=== PATIENT | male | born 1945 | race African-American/Black ===

== ENCOUNTER 2022-04-21 11:01 | Inpatient (IN) | payer MEDICARE, OTHER ==
[~2022-04-21] VITALS: Ht 170.2 cm; Wt 59.9 kg
--- NOTE | 2022-04-21 07:30 | NUR ---
Received Pt from day shift. Pt is A&Ox 0 and is asleep. SR on monitor. Pt on Rm air. GUILLE midline is intact. Pt has patent G-tube. Pt has suprapubic catheter. Air mattress ordered. Safety measures in place. Will continue to monitor. Addendum: 04/22/22 at 0607 by BINA TSAI RN Received Pt at 1930, not 0730
[2022-04-21] MEDS ORDERED: IV NORMAL SALINE 500 ML BAG IV ONE (11:30)
[2022-04-21 11:42] LABS: HEMATOCRIT 27.5 % (36.7-47.1); MEAN CORPUSCULAR HEMOGLOBIN 22.8 uug (23.8-33.4); MEAN CORPUSCULAR VOLUME 79.3 fL (73.0-96.2); PLATELET COUNT (AUTO) 425 K/uL (152-348)
--- NOTE | 2022-04-21 11:48 | NUR ---
Attempted 3 times to get iv and unsuccesful. plant engineering manager and house calls nurse aware and informed about not getting iv and picc line nurse will be called by Nurse cap and hat production supervisor.
--- NOTE | 2022-04-21 11:53 | NUR ---
Not able to get iv at present time so fluids ordered by through pt gtube.
[2022-04-21 11:59] LABS: ALANINE AMINOTRANSFERASE 49 U/L (16-63); ALKALINE PHOSPHATASE 115 U/L (50-136); ASPARTATE AMINOTRANSFERASE 32 U/L (15-37); BILIRUBIN,TOTAL 0.2 mg/dL (0.2-1.0); CARBON DIOXIDE 35 mmol/L (21-32); CHLORIDE 112 mmol/L (98-107); CREATININE 1.4 mg/dL (0.6-1.3); GLUCOSE 117 mg/dL (74-106); POTASSIUM 5.1 mmol/L (3.5-5.1); TOTAL PROTEIN, SERUM 8.5 g/dL (6.4-8.2)
[2022-04-21 12:02] LABS: UREA NITROGEN, BLOOD 115 mg/dL (7-18)
[2022-04-21] MEDS ORDERED: DOCU100C36 GT (12:17)
[2022-04-21] MEDS ORDERED: ASCO500T10 GT (12:17)
[2022-04-21] MEDS ORDERED: FERROUS SULFATE GT (12:17)
[2022-04-21] MEDS ORDERED: ACET-2154 GT ×2 (12:17→12:34)
[2022-04-21] MEDS ORDERED: LACT10SO3 GT (12:17)
[2022-04-21] MEDS ORDERED: FAMO-132 GT (12:17)
[2022-04-21] MEDS ORDERED: APIX5TAB4 GT (12:17)
[2022-04-21] MEDS ORDERED: GABA600T12 GT (12:17)
[2022-04-21] MEDS ORDERED: BISA10SU61 RC (12:17)
[2022-04-21] MEDS ORDERED: SENN-261 GT (12:34)
[2022-04-21] MEDS ORDERED: COLL30OI TP (12:34)
[2022-04-21] MEDS ORDERED: MULTIVITAMINS GT (12:34)
[2022-04-21] MEDS ORDERED: MAGN400O6 GT (12:34)
[2022-04-21] MEDS ORDERED: NORCO GT ×2 (12:34)
[2022-04-21] MEDS ORDERED: NA P133E RC (12:34)
[2022-04-21] MEDS ORDERED: ZINC1CAP2 GT (12:34)
[2022-04-21] MEDS ORDERED: METO50TA16 GT (12:34)
[2022-04-21] MEDS ORDERED: MELA3TAB41 GT (12:34)
[2022-04-21] MEDS ORDERED: CHOL100045 GT (12:34)
[2022-04-21] MEDS ORDERED: LINA72CA GT (12:34)
[2022-04-21] MEDS ORDERED: CRAN3875 GT (12:34)
[2022-04-21] MEDS ORDERED: AMIN236L GT (12:34)
[2022-04-21] MEDS ORDERED: BISACODYL 10 MG SUPP.RECT RC PRN (13:00)
[2022-04-21] MEDS ORDERED: FLEET ENEMA 133 ML BOTTLE RC PRN (13:00)
[2022-04-21] MEDS ORDERED: ACETAMINOPHEN 325 MG TABLET-SA PATIENTS-PAIN ONLY GT PRN ×2 (13:00)
[2022-04-21] MEDS ORDERED: IV 1/2NS 1000 ML 1,000 ML IV PRN (13:00)
[2022-04-21] MEDS ORDERED: REMEDY ESSENTIAL ZINC PASTE 113 GM TP PRN (13:00)
[2022-04-21] MEDS ORDERED: ONDANSETRON 4 MG/2 ML VIAL IV PRN (13:00)
[2022-04-21] MEDS ORDERED: Medication Not On Formulary EA (Lactulose (Duphalac) 20 GM) GT SCH (13:00)
[2022-04-21] MEDS ORDERED: MAGNESIUM HYDROXIDE 30 ML LIQUID UDC GT PRN (13:00)
[2022-04-21] MEDS ORDERED: MAGNESIUM HYDROXIDE 30 ML LIQUID UDC PO PRN (13:00)
[2022-04-21] MEDS ORDERED: ASCORBIC ACID 500 MG TABLET ONE (13:22)
[2022-04-21] MEDS: ASCORBIC ACID 500 MG TABLET GT SCH ×2 (13:24→17:43)
--- NOTE | 2022-04-21 13:59 | NUR ---
PiCC line put into right upper arm.
[2022-04-21] MEDS ORDERED: MEROPENEM 1 G in IV NORMAL SALINE 100 ML IV SCH (14:00)
--- NOTE | 2022-04-21 14:01 | NUR ---
Report given to Lashelle. stokes
--- NOTE | 2022-04-21 14:21 | NUR ---
PICC line put in. Pt continues to move hands making fists and 02 monitor not reading proficiently. Pt moving and difficult to get vitals when staff not assisting holding him still. 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 Breathing even and unlabored. No signs of distress noted.
[2022-04-21 15:47] VITALS: BP 154/90
[2022-04-21] MEDS: MEROPENEM 1 G in IV NORMAL SALINE 100 ML IV SCH (16:00)
[2022-04-21] MEDS ORDERED: DOCUSATE SODIUM 100 MG CAPSULE PO SCH (17:00)
[2022-04-21] MEDS ORDERED: Medication Not On Formulary EA (Apixaban (Eliquis) 5 MG) GT SCH (17:00)
[2022-04-21] MEDS ORDERED: FAMOTIDINE 20 MG TABLET GT SCH (17:00)
[2022-04-21] MEDS: MORPHINE SULFATE 2 MG/1 ML DISP.SYRIN IV PRN (17:23)
[2022-04-21] MEDS ORDERED: PANTOPRAZOLE SODIUM 40 MG VIAL IV SCH (17:30)
[2022-04-21] MEDS: METOPROLOL TARTRATE 50 MG TABLET GT SCH (17:42)
[2022-04-21] MEDS: LACTULOSE 20 G/30 ML LIQUID UDC GT SCH ×2 (17:42→20:52)
[2022-04-21] MEDS: GABAPENTIN 300 MG CAPSULE GT SCH (17:42)
[2022-04-21] MEDS: DOCUSATE SODIUM 100 MG/10 ML LIQUID UDC GT SCH (17:42)
[2022-04-21 20:00] VITALS: BP 96/36
[2022-04-21] MEDS: IV D5 1/2 NS 1000 ML 1,000 ML IV PRN (20:20)
[2022-04-21] MEDS: VANCOMYCIN IV 750 MG in IV DEXTROSE 5% 250 ML IV SCH (20:22)
[2022-04-21] MEDS: PANTOPRAZOLE SODIUM 40 MG VIAL IV SCH (20:51)
[2022-04-21] MEDS: SENNOSIDES 1 TABLET GT SCH (20:51)
[2022-04-21] MEDS: SUCRALFATE 1 G TABLET GT SCH (20:51)
[2022-04-21] MEDS: MELATONIN 3 MG TABLET GT SCH (20:51)
[2022-04-21] MEDS ORDERED: APIXABAN 5 MG TABLET GT SCH (21:00)
[2022-04-21] MEDS: SOD FERRIC GLUC COMPLX/SUCROSE 125 MG in IV NORMAL SALINE 100 ML IV SCH (22:58)
[2022-04-22] VITALS (13 sets, daily range): BP systolic 68–129; BP diastolic 35–64
--- NOTE | 2022-04-22 02:04 | NUR ---
MRSA swab & UA sent to lab. Safety measures in place. Will continue to monitor.
[2022-04-22 02:47] LABS: *BILIRUBIN,URIN NEGATIVE (NEGATIVE); *BLOOD, URINE 3+ (NEGATIVE); *CLARITY,URINE TURBID (CLEAR); *COLOR,URINE LIGHT YELLOW (YELLOW); *KETONES,URINE NEGATIVE (NEGATIVE); LEUKOCYTE ESTERASE ,URINE 3+ (NEGATIVE); NITRITE, URINE POSITIVE (NEGATIVE); PH,URINE >=9.0 (5.0-8.0); UGLUCOSE NEGATIVE (NEGATIVE)
[2022-04-22 03:44] LABS: RBC,URINE 50-80 /HPF (0-3)
[2022-04-22 03:46] LABS: BACTERIA,URINE MANY /HPF (NONE SEEN); SQUAMOUS EPITHELIAL CELL,UR FEW /HPF (NONE SEEN); WBC,URINE 50-80 /HPF (0-3)
[2022-04-22 03:49] LABS: CALCIUM PHOSPHATE CRYSTALS,UR MODERATE /HPF (NONE SEEN)
[2022-04-22] MEDS: MEROPENEM 1 G in IV NORMAL SALINE 100 ML IV SCH ×2 (04:06→16:43)
[2022-04-22] MEDS: MORPHINE SULFATE 4 MG/1 ML DISP.SYRIN IV PRN (04:06)
[2022-04-22 05:46] LABS: HEMATOCRIT 25.4 % (36.7-47.1); MEAN CORPUSCULAR HEMOGLOBIN 22.7 uug (23.8-33.4); MEAN CORPUSCULAR VOLUME 78.8 fL (73.0-96.2); PLATELET COUNT (AUTO) 429 K/uL (152-348)
[2022-04-22 05:56] LABS: CARBON DIOXIDE 34 mmol/L (21-32); CHLORIDE 110 mmol/L (98-107); CREATININE 1.4 mg/dL (0.6-1.3); GLUCOSE 121 mg/dL (74-106); MAGNESIUM 2.4 mg/dL (1.8-2.4); PHOSPHOROUS 4.6 mg/dL (2.5-4.9); POTASSIUM 4.6 mmol/L (3.5-5.1)
[2022-04-22 06:02] LABS: UREA NITROGEN, BLOOD 97 mg/dL (7-18)
--- NOTE | 2022-04-22 06:07 | NUR ---
Received report from lab that BUN is 97. Performed Critical lab charting. Will continue to monitor.
[2022-04-22] MEDS: SUCRALFATE 1 G TABLET GT SCH ×4 (06:40→21:00)
[2022-04-22] MEDS: METOPROLOL TARTRATE 50 MG TABLET GT SCH ×2 (09:00→17:00)
[2022-04-22] MEDS ORDERED: AMINO ACIDS GT SCH (09:00)
[2022-04-22] MEDS ORDERED: MULTIVITAMINS GT SCH (09:00)
[2022-04-22] MEDS ORDERED: Linaclotide (Linzess) 72 MCG) GT SCH (09:00)
[2022-04-22] MEDS ORDERED: PROTEIN HYDROLYS GT SCH (09:00)
[2022-04-22] MEDS ORDERED: Medication Not On Formulary EA (Cran/Vitc/Mannose/Inulin/Brom (Uti-Stat Liquid) 30 MG) GT SCH (09:00)
[2022-04-22] MEDS ORDERED: CHOLECALCIFEROL GT SCH (09:00)
[2022-04-22] MEDS: LACTULOSE 20 G/30 ML LIQUID UDC GT SCH ×5 (09:00→21:00)
[2022-04-22] MEDS: MULTIVITAMINS,THERAPEUTIC TABLET GT SCH (09:00)
[2022-04-22] MEDS: DOCUSATE SODIUM 100 MG/10 ML LIQUID UDC GT SCH ×2 (09:00→17:10)
[2022-04-22] MEDS ORDERED: FERROUS SULFATE GT SCH (09:00)
--- NOTE | 2022-04-22 11:34 | NUR ---
CALLED TO ROOM BY NOZZLE OPERATOR FOR BP OF 68. PT IS AWAKE AND IS ASYMPTOMATIC. MPOIvania CAVANAUGH PAGED VIA TEXT MESSAGING AND PHONE CALL. AWAITING RESPOSE.D5I/2 NS INFUSING ORDERED. WILL CONTINUE TO MONITOR.
[2022-04-22] MEDS: PANTOPRAZOLE SODIUM 40 MG VIAL IV SCH ×2 (12:00→22:37)
[2022-04-22] MEDS: FAMOTIDINE 20 MG TABLET GT SCH (12:00)
[2022-04-22] MEDS: FERROUS SULFATE 300 MG/5 ML LIQUID UDC GT SCH (12:00)
[2022-04-22] MEDS: GABAPENTIN 300 MG CAPSULE GT SCH ×3 (12:00→17:10)
[2022-04-22] MEDS: ZINC SULFATE 220 MG CAPSULE GT SCH (12:00)
[2022-04-22] MEDS ORDERED: ALBUMIN HUMAN 25% 50 ML IV ONE ×2 (12:15→13:45)
[2022-04-22] MEDS ORDERED: IV NORMAL SALINE 500 ML IV ONE (12:15)
--- NOTE | 2022-04-22 12:17 | NUR ---
BP AND O2SAT 98. aLBUMIN IS IN PROCESS ORDERED.
[2022-04-22] MEDS: CHOLECALCIFEROL 1,000 UNIT TABLET GT SCH (12:22)
[2022-04-22] MEDS: IV D5 1/2 NS 1000 ML 1,000 ML IV PRN ×3 (13:04→22:38)
[2022-04-22] MEDS: SOD FERRIC GLUC COMPLX/SUCROSE 125 MG in IV NORMAL SALINE 100 ML IV SCH (13:09)
[2022-04-22] MEDS ORDERED: IV NS 1000 ML 1,000 ML IV PRN (13:45)
[2022-04-22] MEDS ORDERED: MIDODRINE HCL 2.5 MG TABLET PO PRN (13:45)
[2022-04-22] MEDS ORDERED: IV D5 1/2 NS 1000 ML 1,000 ML IV ONE (13:45)
--- NOTE | 2022-04-22 13:45 | NUR ---
[facility] REQUESTED WITH TYPE AND SCREEN TO TRANSFUSE IPRBC PER MD FOR HGB 7.3. NO ACTIVE BLEEDING NOTED.
--- NOTE | 2022-04-22 13:57 | NUR ---
BP 77/44 BOLUS NS IL IN PROGRESS. PT IS AWAKE.
[2022-04-22] MEDS: MIDODRINE HCL 5 MG TABLET PO PRN (15:12)
[2022-04-22] MEDS: PROTEIN SUPPLEMENT (PROSTAT) 30 ML LIQUID GT SCH (15:14)
[2022-04-22] MEDS: VANCOMYCIN IV 750 MG in IV DEXTROSE 5% 250 ML IV SCH (17:09)
[2022-04-22] MEDS: ACETAMINOPHEN 325 MG TABLET GT PRN (17:17)
--- NOTE | 2022-04-22 18:00 | NUR ---
CONSENT OBTAINED AND BLOOD TRANSFUSION INITIATED ORDERED. BP 77/39, HR 55. PT IS ON ROOM AIR. HOB [address] AT 2L/MIN NC.
--- NOTE | 2022-04-22 18:30 | NUR ---
BLOOD TRANSFUSION IN PROGRESS WITHOUT S/S OF ADVERSE REACTION. WILL CONTINUE TO MONITOR VS. HOB AT 30 DEGREE. S/P CATH IS INTACT AND PATENT.
[2022-04-22] MEDS: SENNOSIDES 1 TABLET GT SCH (21:00)
[2022-04-22] MEDS: MELATONIN 3 MG TABLET GT SCH (21:00)
[2022-04-23] VITALS: BP 104/51
[2022-04-23 04:00] VITALS: BP 121/62
[2022-04-23] MEDS: MEROPENEM 1 G in IV NORMAL SALINE 100 ML IV SCH ×2 (04:24→20:17)
[2022-04-23 05:07] LABS: ABG HCO3 26.3 mmol/L; ABG PCO2 39.7 mmHg (35.0-45.0); ABG PH 7.439 (7.350-7.450); ABG PO2 84.6 mmHg (75.0-100.0); ABG SITE LEFT RADIAL; ABG TOTAL HEMOGLOBIN 8.7 G/dL (13.5-18.0); COHb 1.1 % (0.5-1.5); MetHb 0.3 % (0.0-1.5); O2Hb 95.2 % (94.0-97.0); VENT MODE Nasal Cannula
[2022-04-23] MEDS: SUCRALFATE 1 G TABLET GT SCH ×4 (06:34→20:45)
--- NOTE | 2022-04-23 07:30 | NUR ---
REPORT GIVEN TO KEELY LIEBERMAN
[2022-04-23] MEDS: PROTEIN SUPPLEMENT (PROSTAT) 30 ML LIQUID GT SCH (08:11)
[2022-04-23] MEDS: PANTOPRAZOLE SODIUM 40 MG VIAL IV SCH ×2 (08:53→20:46)
[2022-04-23] MEDS: LACTULOSE 20 G/30 ML LIQUID UDC GT SCH ×4 (08:54→20:46)
[2022-04-23] MEDS: FERROUS SULFATE 300 MG/5 ML LIQUID UDC GT SCH (08:54)
[2022-04-23] MEDS: FAMOTIDINE 20 MG TABLET GT SCH (08:55)
[2022-04-23] MEDS: GABAPENTIN 300 MG CAPSULE GT SCH ×3 (08:55→17:00)
[2022-04-23] MEDS: ZINC SULFATE 220 MG CAPSULE GT SCH (08:55)
[2022-04-23] MEDS: MULTIVITAMINS,THERAPEUTIC TABLET GT SCH (08:55)
[2022-04-23] MEDS: CHOLECALCIFEROL 1,000 UNIT TABLET GT SCH (08:55)
[2022-04-23] MEDS: METOPROLOL TARTRATE 50 MG TABLET GT SCH ×2 (09:00→17:00)
[2022-04-23] MEDS: DOCUSATE SODIUM 100 MG/10 ML LIQUID UDC GT SCH ×2 (09:04→17:00)
[2022-04-23 09:20] LABS: HEMATOCRIT 26.4 % (36.7-47.1); MEAN CORPUSCULAR HEMOGLOBIN 23.5 uug (23.8-33.4); MEAN CORPUSCULAR VOLUME 79.2 fL (73.0-96.2); PLATELET COUNT (AUTO) 381 K/uL (152-348)
[2022-04-23 09:35] LABS: BILIRUBIN,TOTAL 0.3 mg/dL (0.2-1.0); MAGNESIUM 1.8 mg/dL (1.8-2.4); PHOSPHOROUS 3.6 mg/dL (2.5-4.9); POTASSIUM 3.8 mmol/L (3.5-5.1); TOTAL PROTEIN, SERUM 7.4 g/dL (6.4-8.2)
--- NOTE | 2022-04-23 10:00 | NUR ---
RECEIVED ON FIRST STEP BANDAR TOTALLY DEPENDENT NON VERBAL ALL NEEDS ANTICIPATED AND SATISFIED ON O2 WITH NO SOB AT THIS TIME TURNED AND REPOSITIONED Q2H.POOR SKIN INTERGRITY WITH MULTIPLE WOUNDS ALL OVER THE BODY PATIENT HAS A GT BUT IS NPO EXCEPT MEDICATIONS PENDING PER REPORT EGD TODAY.REMAIN ON D5I/2 NS ORDERED WITH NO S/S OF INFILTERATION AT THIS TIME TELE IS SR MADE COMFORTABLE WILL CONTINUE TO OBSERVE.
[2022-04-23 11:31] VITALS: BP 116/62
[2022-04-23] MEDS: SOD FERRIC GLUC COMPLX/SUCROSE 125 MG in IV NORMAL SALINE 100 ML IV SCH (13:59)
--- NOTE | 2022-04-23 15:19 | NUR ---
DR MARRUFO HERE AND SEEN PATIENT WITH NEW ORDERS AND NOTED PATIENT IS SCHEDULED FOR EGD TODAY BY DR BROWN BUT NO ORDERS RECEIVED YET FROM DR BROWN FOR THE INTENDED PROCEDURE.
[2022-04-23 15:29] VITALS: BP 103/37
[2022-04-23] MEDS: IV D5 1/2 NS 1000 ML 1,000 ML IV PRN (15:30)
--- NOTE | 2022-04-23 15:43 | NUR ---
PATIENT PICKED UP BY BED TO OPERATING ROOM FOR SCHEDULED PROCEDURE.
[2022-04-23] MEDS ORDERED: LIDOCAINE-MPF 2% 5 ML VIAL IJ ONE (16:33)
[2022-04-23] MEDS ORDERED: PROPOFOL 200 MG/20 ML BOTTLE IV ONE (16:33)
--- NOTE | 2022-04-23 17:45 | NUR ---
PATIENT RETURNED FROM THE POST ANESTHESIA UNIT BY BED TO HIS ROOM 315 AWAKE NON VERBAL ON O2 AT 4L/M BY NASAL CANULA WITH NO SHORTNESS OF BREATH RECONNECTED TO HIS IVF ORDERED MADE COMFORTABLE WILL CONTINUE TO OBSERVE.
[2022-04-23] MEDS: VANCOMYCIN IV 750 MG in IV DEXTROSE 5% 250 ML IV SCH (18:06)
[2022-04-23] MEDS: MIDODRINE HCL 5 MG TABLET PO PRN (18:29)
[2022-04-23 18:30] VITALS: BP 92/51
--- NOTE | 2022-04-23 18:30 | NUR ---
BLOOD PRESSURE AT THIS TIME IS 92/51 MEDICATED WITH MIDODRIN ORDERED
[2022-04-23 20:00] VITALS: BP 114/51
[2022-04-23] MEDS: MELATONIN 3 MG TABLET GT SCH (20:46)
[2022-04-23] MEDS: SENNOSIDES 1 TABLET GT SCH (20:46)
[2022-04-24] VITALS: BP 111/57
[2022-04-24 04:00] VITALS: BP 101/52
[2022-04-24] MEDS ORDERED: JEVITY 1.2 1000 ML LIQUID GT PRN (05:45)
[2022-04-24] MEDS: MEROPENEM 1 G in IV NORMAL SALINE 100 ML IV SCH ×3 (06:40→23:07)
--- NOTE | 2022-04-24 07:20 | NUR ---
VS stable; repositioned q2h; Dr Ruby here and saw pt with new orders; GTF started; pt will have dietary eval and ok to order their suggestions; Wound care done to BLE; will endorse to have sacral and hip wound dressing later; bm X1; INCONTINENCE CARE DONE.
[2022-04-24] MEDS: SUCRALFATE 1 G TABLET GT SCH ×4 (07:30→20:20)
[2022-04-24 07:32] LABS: HEMATOCRIT 26.9 % (36.7-47.1); MEAN CORPUSCULAR HEMOGLOBIN 22.9 uug (23.8-33.4); MEAN CORPUSCULAR VOLUME 79.4 fL (73.0-96.2); PLATELET COUNT (AUTO) 420 K/uL (152-348)
[2022-04-24 07:54] LABS: CREATININE 0.8 mg/dL (0.6-1.3); MAGNESIUM 1.6 mg/dL (1.8-2.4); PHOSPHOROUS 2.6 mg/dL (2.5-4.9); POTASSIUM 3.7 mmol/L (3.5-5.1)
[2022-04-24] MEDS: PROTEIN SUPPLEMENT (PROSTAT) 30 ML LIQUID GT SCH (08:00)
[2022-04-24] MEDS ORDERED: FAMOTIDINE 20 MG TABLET GT SCH (09:00)
[2022-04-24] MEDS: METOPROLOL TARTRATE 50 MG TABLET GT SCH ×2 (09:00→17:00)
[2022-04-24] MEDS: FERROUS SULFATE 300 MG/5 ML LIQUID UDC GT SCH (09:58)
[2022-04-24] MEDS: LACTULOSE 20 G/30 ML LIQUID UDC GT SCH ×4 (09:58→20:20)
[2022-04-24] MEDS: DOCUSATE SODIUM 100 MG/10 ML LIQUID UDC GT SCH ×2 (09:58→17:20)
[2022-04-24] MEDS: ZINC SULFATE 220 MG CAPSULE GT SCH (09:59)
[2022-04-24] MEDS: MULTIVITAMINS,THERAPEUTIC TABLET GT SCH (09:59)
[2022-04-24] MEDS: GABAPENTIN 300 MG CAPSULE GT SCH ×3 (09:59→17:20)
[2022-04-24] MEDS: CHOLECALCIFEROL 1,000 UNIT TABLET GT SCH (09:59)
[2022-04-24] MEDS: PANTOPRAZOLE SODIUM 40 MG VIAL IV SCH ×2 (09:59→20:19)
[2022-04-24] MEDS: MAGNESIUM SULFATE/D5W 100 ML IV SCH ×2 (10:05→10:15)
[2022-04-24] MEDS: MORPHINE SULFATE 2 MG/1 ML DISP.SYRIN IV PRN ×2 (10:22→17:22)
[2022-04-24] MEDS: MIDODRINE HCL 5 MG TABLET PO PRN (10:23)
--- NOTE | 2022-04-24 12:57 | NUR ---
WOUND CARE CONSULT: DR MELTON AND DR WALTER NOTIFIED OF SURGICAL AND DPM CONSULTS. PT HAS MULTIPLE PRESSURE ULCERS, PRESENT ON ADMISSION. PT IS ON FIRST STEP LOW AIRLOSS MATTRESS. DISCUSSED SKIN PROTECTION WITH NURSING STAFF. MD IN AGREEMENT WITH PLAN OF CARE. MD IN AGREEMENT WITH PLAN OF CARE.
[2022-04-24] MEDS: SOD FERRIC GLUC COMPLX/SUCROSE 125 MG in IV NORMAL SALINE 100 ML IV SCH (14:02)
--- NOTE | 2022-04-24 14:20 | NUR ---
DRESSING CHANGE TO L HIP, SACRUM AND R HIP. LARGE BLOODY DRAINAGE NOTED, SLOUGH NOTED TO WOUND BED. DRAINAGE NOTED FROM EACH WOUNDS. MEDICATED WITH MORPHINE FOR PAIN PRIOR DRESSING CHANGE, EFFECTIVE. TOLERATED PROCEDURE WELL. PATIENT REFUSED TO TURN Q2 HOURS. EDUCATED PATIENT ON TURNING TO AIDE WITH HEALING PROCESS. SMALL BOWEL MOVEMENT. PEG PATENT, FLUSHES WELL. NEW ORDER TO CHANGE FEEDING FROM FROM JEVITY 1.5 TO GLUCERNA 1.2. PATIENT CURRENTLY IN SEMI DA SILVA POSITION, NO DISCOMFORT NOTED. BED IN LOW POSITION, CALL WITT WITHIN REACH. HANG Ramirez RN
[2022-04-24] MEDS: VANCOMYCIN IV 750 MG in IV DEXTROSE 5% 250 ML IV SCH (14:42)
[2022-04-24 16:04] VITALS: BP 104/51
[2022-04-24 20:00] VITALS: BP 102/55
[2022-04-24] MEDS ORDERED: GLUCERNA 1.2 1000ML LIQUID GT PRN (20:15)
[2022-04-24] MEDS: SENNOSIDES 1 TABLET GT SCH (20:19)
[2022-04-24] MEDS: MELATONIN 3 MG TABLET GT SCH (20:20)
[2022-04-24] MEDS ORDERED: MAGNESIUM SULFATE/D5W 100 ML IV SCH (21:00)
[2022-04-24] MEDS ORDERED: POTASSIUM PHOSPHATE MM 15 MMOL in IV NORMAL SALINE 250 ML IV ONE ×4 (21:00)
[2022-04-24] MEDS ORDERED: MAGNESIUM SULFATE 1 GM/2 ML VIAL ONE (21:29)
[2022-04-24] MEDS: SODIUM HYPOCHLORITE 0.25% (HALF STRENGTH) 480 ML BOTTLE TOP SCH ×2 (22:45→23:09)
[2022-04-25] VITALS: BP 110/57
[2022-04-25 04:00] VITALS: BP 106/59
--- NOTE | 2022-04-25 05:13 | NUR ---
PT HAD LARGE LOOSE BOWEL MOVEMENT. DRESSINGS CHANGED ON SACRUM AND LEFT AND RIGHT HIP. CHANGED FEEDING TO GLUCERNA 1.2. PEG TUBE INTACT AND PATENT. ABLE TO TOLERATE FEEDINGS WELL. NO ASPIRATION NOTED. SAFETY PRECAUTIONS MAINTAINED.
[2022-04-25] MEDS: VANCOMYCIN IV 750 MG in IV DEXTROSE 5% 250 ML IV SCH ×2 (05:30→20:38)
[2022-04-25] MEDS: MEROPENEM 1 G in IV NORMAL SALINE 100 ML IV SCH ×3 (05:30→22:14)
[2022-04-25] MEDS ORDERED: LIDOCAINE 1%-EPI 1:200,000 MPF 30 ML VIAL IJ ONE (06:00)
[2022-04-25] MEDS ORDERED: SILVER NITRATE APPLICATOR STICK EACH TP ONE (06:00)
[2022-04-25] MEDS ORDERED: LIDOCAINE 1%-EPI 1:200,000 MPF 30 ML VIAL IJ PRN (06:00)
[2022-04-25] MEDS: MORPHINE SULFATE 2 MG/1 ML DISP.SYRIN IV PRN ×2 (10:02→15:10)
[2022-04-25] MEDS: LACTULOSE 20 G/30 ML LIQUID UDC GT SCH ×4 (10:03→20:38)
[2022-04-25] MEDS: FERROUS SULFATE 300 MG/5 ML LIQUID UDC GT SCH (10:04)
[2022-04-25] MEDS: DOCUSATE SODIUM 100 MG/10 ML LIQUID UDC GT SCH ×2 (10:04→16:18)
[2022-04-25] MEDS: ZINC SULFATE 220 MG CAPSULE GT SCH (10:05)
[2022-04-25] MEDS: PROTEIN SUPPLEMENT (PROSTAT) 30 ML LIQUID GT SCH (10:05)
[2022-04-25] MEDS: CHOLECALCIFEROL 1,000 UNIT TABLET GT SCH (10:05)
[2022-04-25] MEDS: MULTIVITAMINS,THERAPEUTIC TABLET GT SCH (10:06)
[2022-04-25] MEDS: PANTOPRAZOLE SODIUM 40 MG VIAL IV SCH (10:06)
[2022-04-25] MEDS: GABAPENTIN 300 MG CAPSULE GT SCH ×4 (10:06→17:01)
[2022-04-25] MEDS: METOPROLOL TARTRATE 50 MG TABLET GT SCH ×2 (10:06→16:19)
[2022-04-25 10:22] LABS: HEMATOCRIT 24.9 % (36.7-47.1); MEAN CORPUSCULAR HEMOGLOBIN 23.7 uug (23.8-33.4); MEAN CORPUSCULAR VOLUME 80.2 fL (73.0-96.2); PLATELET COUNT (AUTO) 394 K/uL (152-348)
[2022-04-25] MEDS: SUCRALFATE 1 G TABLET GT SCH ×5 (10:36→20:34)
[2022-04-25 10:48] LABS: CREATININE 0.7 mg/dL (0.6-1.3); POTASSIUM 3.9 mmol/L (3.5-5.1)
[2022-04-25 11:30] VITALS: BP 112/55
[2022-04-25] MEDS: SODIUM HYPOCHLORITE 0.25% (HALF STRENGTH) 480 ML BOTTLE TOP SCH (11:55)
[2022-04-25] MEDS: ACETAMINOPHEN 325 MG TABLET GT PRN (15:11)
[2022-04-25 15:35] VITALS: BP 102/85
[2022-04-25 15:43] VITALS: BP 102/85
[2022-04-25 15:53] LABS: BILIRUBIN,DIRECT 0.2 mg/dL (0.0-0.2); BILIRUBIN,TOTAL 0.2 mg/dL (0.2-1.0)
[2022-04-25] MEDS: PANTOPRAZOLE ORAL SUSPENSION 40 MG SUSPDR.PKT GT SCH (17:01)
[2022-04-25 20:00] VITALS: BP 111/56
--- NOTE | 2022-04-25 20:00 | NUR ---
RECEIVED REPORT FROM POLO DE LA VEGA RN SHIFT. PATIENT ALERT & ORIENTED X1-2 AND SPEAKS VATICAN CITIZEN SIGN LANGUAGE (ASL). DAIRY FARM MANAGER AT BEDSIDE DURING THE DAY SHIFT. VITAL SIGNS STABLE. RN NOTED TEMPERATURE FOR PATIENT, GAVE TYNENOL ORDERED. PATIENT TOLERATES GT AND IV MEDICATIONS WELL. PATIENT TOLERATES TUBE FEEDING. PATIENT SUBPUBIC CATHETER PATENT AND DRAINING. TWO LOOSE STOOL DIARRHEAL BOWEL MOVEMENT NOTED. RN HELD MEDICATIONS CAUSING LOOSE STOOL. PAIN MANAGED WITH MEDICATIONS INDICATED ON EMAR. ALL WOUNDS CHANGED COMPLETED PER MD ORDERS. PATIENT CONTINUES TO BE RESISTANT TO CARE, BECOMING RIDGED AND RESISTANT, THREATENING TO HIT STAFF. RN DEESCALATES WITH HELP OF ASSEMBLER INSULATOR, HOWEVER PATIENT CONTINUES TO BE RESISTANT. NO ACUTE DISTRESS NOTED. ALL NEEDS MET AT THIS TIME. ENDORSED CARE TO KEELY DE LA VEGA.
[2022-04-25] MEDS: MELATONIN 3 MG TABLET GT SCH (20:35)
[2022-04-25] MEDS: SENNOSIDES 1 TABLET GT SCH (20:37)
[2022-04-25] MEDS: MORPHINE SULFATE 4 MG/1 ML DISP.SYRIN IV PRN (20:54)
[2022-04-26] VITALS: BP 108/58
[2022-04-26] MEDS: PANTOPRAZOLE ORAL SUSPENSION 40 MG SUSPDR.PKT GT SCH ×2 (06:17→17:28)
[2022-04-26] MEDS: MEROPENEM 1 G in IV NORMAL SALINE 100 ML IV SCH ×3 (06:17→22:41)
[2022-04-26 07:22] LABS: CREATININE 0.7 mg/dL (0.6-1.3); MAGNESIUM 1.8 mg/dL (1.8-2.4); PHOSPHOROUS 2.4 mg/dL (2.5-4.9); POTASSIUM 4.2 mmol/L (3.5-5.1)
[2022-04-26 08:06] LABS: A/G RATIO 0.4 (0.7-1.7); ALBUMIN 1.7 g/dL (2.9-4.4); ALPHA-1-GLOBULIN 0.5 g/dL (0.0-0.4); ALPHA-2-GLOBULIN 0.9 g/dL (0.4-1.0); BETA GLOBULIN 0.9 g/dL (0.7-1.3); GAMMA GLOBULIN 2.4 g/dL (0.4-1.8); GLOBULIN, TOTAL 4.8 g/dL (2.2-3.9); M-SPIKE Not Observed g/dL (Not Observed)
[2022-04-26] MEDS: FERROUS SULFATE 300 MG/5 ML LIQUID UDC GT SCH (08:36)
[2022-04-26] MEDS: LACTULOSE 20 G/30 ML LIQUID UDC GT SCH ×4 (08:36→22:54)
[2022-04-26] MEDS: MULTIVITAMINS,THERAPEUTIC TABLET GT SCH (08:37)
[2022-04-26] MEDS: MORPHINE SULFATE 2 MG/1 ML DISP.SYRIN IV PRN ×2 (08:37→14:04)
[2022-04-26] MEDS: GABAPENTIN 300 MG CAPSULE GT SCH ×3 (08:37→17:28)
[2022-04-26] MEDS: SUCRALFATE 1 G TABLET GT SCH ×4 (08:37→23:31)
[2022-04-26] MEDS: CHOLECALCIFEROL 1,000 UNIT TABLET GT SCH (08:37)
[2022-04-26] MEDS: ZINC SULFATE 220 MG CAPSULE GT SCH (08:37)
[2022-04-26] MEDS: DOCUSATE SODIUM 100 MG/10 ML LIQUID UDC GT SCH ×2 (08:37→17:28)
[2022-04-26] MEDS: PROTEIN SUPPLEMENT (PROSTAT) 30 ML LIQUID GT SCH (08:40)
[2022-04-26] MEDS: METOPROLOL TARTRATE 50 MG TABLET GT SCH ×2 (08:53→17:34)
[2022-04-26] MEDS: SODIUM HYPOCHLORITE 0.25% (HALF STRENGTH) 480 ML BOTTLE TOP SCH ×2 (09:00→10:28)
[2022-04-26 11:56] VITALS: BP 131/65
[2022-04-26 12:28] LABS: HEMATOCRIT 29.4 % (36.7-47.1); MEAN CORPUSCULAR HEMOGLOBIN 23.4 uug (23.8-33.4); MEAN CORPUSCULAR VOLUME 83.5 fL (73.0-96.2); PLATELET COUNT (AUTO) 209 K/uL (152-348)
[2022-04-26] MEDS: VANCOMYCIN IV 750 MG in IV DEXTROSE 5% 250 ML IV SCH (12:28)
--- NOTE | 2022-04-26 15:50 | NUR ---
Not able to get verbal consent for wound debridement. Called Yoselin Hagen and Nettie Pryor but did not cook pickled meat the phone. Will endorse to next shift
[2022-04-26 16:07] VITALS: BP 118/69
[2022-04-26] MEDS ORDERED: NEUTRA PHOS PACKET PO ONE (17:00)
[2022-04-26] MEDS ORDERED: ONDA4VIA23 IV (18:31)
[2022-04-26] MEDS ORDERED: SILVER NITRATE APPLICATOR TP (18:31)
[2022-04-26] MEDS ORDERED: SODI480S2 TOP (18:31)
[2022-04-26] MEDS ORDERED: CHOL100062 GT (18:31)
[2022-04-26] MEDS ORDERED: MULT-24 GT (18:31)
[2022-04-26] MEDS ORDERED: SUCR1TAB31 GT (18:31)
[2022-04-26] MEDS ORDERED: FERR300L GT (18:31)
[2022-04-26] MEDS ORDERED: MIDO5TAB4 PO (18:31)
[2022-04-26] MEDS ORDERED: GABA300C GT (18:31)
[2022-04-26] MEDS ORDERED: DOCU50LI GT (18:31)
[2022-04-26] MEDS ORDERED: MERO1PIG IV (18:31)
[2022-04-26] MEDS ORDERED: VANC750F IV (18:31)
[2022-04-26] MEDS ORDERED: MENT113O TP (18:31)
[2022-04-26] MEDS ORDERED: PANT40SU2 GT (18:31)
[2022-04-26] MEDS ORDERED: RXVAN XX (18:31)
[2022-04-26] MEDS ORDERED: Glucerna 1.2 GT (18:31)
[2022-04-26] MEDS ORDERED: LACT10SO7 GT (18:31)
[2022-04-26 20:00] VITALS: BP 113/76
[2022-04-26] MEDS: MIDODRINE HCL 5 MG TABLET PO PRN (22:53)
[2022-04-26] MEDS: MELATONIN 3 MG TABLET GT SCH (22:54)
[2022-04-26] MEDS: SENNOSIDES 1 TABLET GT SCH (22:54)
--- NOTE | 2022-04-26 23:44 | NUR ---
PT RECEIVED IN BED IN NO DISTRESS. PT IS AWAKE AND LYING IN BED WITHOUT DISTRESS. PT HAS NO SPEECH UPPER ECTREMITIES IS CONTRACTED TOWARD THE CHEST PT IS DEAF, AND TRACT WITH ETES. PEG INTACT AND PATENT; S/P INTACT AND PATENT TO GRAVITY. GUILLE MIDLINE INTACT AND PATENT. DRESSINGS ON B/L LOWER EXTREMITIES ARE CLEAN AND INTACT.HOB ELEVATED. , HOB AT 30 DEGREES. BED IN LOWEST POSITION.
--- NOTE | 2022-04-27 02:46 | NUR ---
pt is awake pt becomes combatibe holding his fist and attempts to hit lab p[ersonnel and nursing assisting to obtain blood for vanco trough. pt is fearful of bear fro =m bab stick will administer Tylenol as ordered.
[2022-04-27] MEDS: ACETAMINOPHEN 325 MG TABLET GT PRN ×2 (03:30→14:52)
[2022-04-27] MEDS: MORPHINE SULFATE 2 MG/1 ML DISP.SYRIN IV PRN (05:58)
[2022-04-27] MEDS: PANTOPRAZOLE ORAL SUSPENSION 40 MG SUSPDR.PKT GT SCH ×2 (05:59→18:00)
[2022-04-27] MEDS: MEROPENEM 1 G in IV NORMAL SALINE 100 ML IV SCH ×2 (06:00→15:00)
--- NOTE | 2022-04-27 06:12 | NUR ---
Morphine Sulfate administerd for s/s of discomfort. bBP WNL RR21. HOB 30
--- NOTE | 2022-04-27 07:10 | NUR ---
As per lab Pt is a difficult phlebotomy stick. Unable to draw through as ordered, Charge nurse notified.
--- NOTE | 2022-04-27 07:12 | NUR ---
Vancomycin help pending vanco trough. Lab unable to draw blood due to a difficult draw and patient's being combative duribng the procedure. Charge nurse notified will inform .
[2022-04-27] MEDS ORDERED: VANCOMYCIN IV 750 MG in IV DEXTROSE 5% 250 ML IV SCH (09:00)
--- NOTE | 2022-04-27 09:20 | NUR ---
attempts made to contact family for consent for proedure. Phone number called is [phone]. and [phone]. Voice mais response noted. Message left to call unit.
--- NOTE | 2022-04-27 10:00 | NUR ---
VANCO D/C'S AND TELEMETRY MONITORING D/C'D ORDERED. PATIENT IS AWARE OF SAME BY CNC SET UP OPERATOR OF THE [facility]. PROVIDED BY THE [facility].
[2022-04-27] MEDS: LACTULOSE 20 G/30 ML LIQUID UDC GT SCH ×3 (10:02→17:00)
[2022-04-27] MEDS: DOCUSATE SODIUM 100 MG/10 ML LIQUID UDC GT SCH ×2 (10:02→17:00)
[2022-04-27] MEDS: MULTIVITAMINS,THERAPEUTIC TABLET GT SCH (10:03)
[2022-04-27] MEDS: SUCRALFATE 1 G TABLET GT SCH ×3 (10:03→16:30)
[2022-04-27] MEDS: GABAPENTIN 300 MG CAPSULE GT SCH ×3 (10:03→17:00)
[2022-04-27] MEDS: ZINC SULFATE 220 MG CAPSULE GT SCH (10:03)
[2022-04-27] MEDS: FERROUS SULFATE 300 MG/5 ML LIQUID UDC GT SCH (10:03)
[2022-04-27] MEDS: METOPROLOL TARTRATE 50 MG TABLET GT SCH ×2 (10:05→17:00)
[2022-04-27 10:39] LABS: HEMATOCRIT 26.3 % (36.7-47.1); MEAN CORPUSCULAR HEMOGLOBIN 24.1 uug (23.8-33.4); MEAN CORPUSCULAR VOLUME 78.9 fL (73.0-96.2); PLATELET COUNT (AUTO) 459 K/uL (152-348)
[2022-04-27 11:05] LABS: CREATININE 0.6 mg/dL (0.6-1.3); MAGNESIUM 1.8 mg/dL (1.8-2.4); PHOSPHOROUS 3.1 mg/dL (2.5-4.9)
--- NOTE | 2022-04-27 11:54 | NUR ---
SW attempted to make contact with the patient's family for consent. SW called twice and left a voicemail for Araceli Wyatt ([phone]) and Konstantin Sheffield ([phone]). SW will continue to follow up.
[2022-04-27 11:59] VITALS: BP 114/52
[2022-04-27] MEDS: PROTEIN SUPPLEMENT (PROSTAT) 30 ML LIQUID GT SCH (12:42)
[2022-04-27] MEDS: SODIUM HYPOCHLORITE 0.25% (HALF STRENGTH) 480 ML BOTTLE TOP SCH ×2 (15:14→15:19)
[2022-04-27] MEDS: CHOLECALCIFEROL 1,000 UNIT TABLET GT SCH (15:17)
[2022-04-27 15:55] VITALS: BP 120/58
[2022-04-27] MEDS ORDERED: LIDOCAINE 1%-EPI 1:200,000 MPF 30 ML VIAL IJ PRN (16:00)
[2022-04-27] MEDS ORDERED: SILVER NITRATE APPLICATOR STICK EACH TP PRN (16:00)
[2022-04-27 17:00] VITALS: BP 97/46
[2022-04-27] MEDS ORDERED: ARGININE/GLUTAMINE/CALCIUM BMB 1 EACH POWD.PACK GT SCH (17:00)
--- NOTE | 2022-04-27 17:53 | NUR ---
Pt discharge to [facility] nursing facility room 55A. Pt d/c with GUILLE midline and peg tube, and suprapubic catheter is intact and patent, Urine jaja drained, Dressings changed. VS 97/46, 67, 97.8, RR 20. Pt is transfer via strecher. Accomanied by EMT. Report given Citlalli Gallardo LPN at [facility]. Pt is in no distress.
[2022-04-27] MEDS: MELATONIN 3 MG TABLET GT SCH (18:04)
== END 2022-04-27 17:35 | DRG 871 ==
LOC: ER 11:01 → TELE3 14:51 → MEDSURG3 04-27 10:46
PROVIDERS: ADMIT Nurse Practitioner Acute Care; ATTEND Internal Medicine
PROC: 05H533Z Insertion of Infusion Device into Right Subclavian Vein, Percutaneous Approach (ICD-10-PCS; principal; 2022-04-21)
PROC: B546ZZA Ultrasonography of Right Subclavian Vein, Guidance (ICD-10-PCS; 2022-04-21)
PROC: 30233N1 Transfusion of Nonautologous Red Blood Cells into Peripheral Vein, Percutaneous Approach (ICD-10-PCS; 2022-04-22)
PROC: 0DB68ZX Excision of Stomach, Via Natural or Artificial Opening Endoscopic, Diagnostic (ICD-10-PCS; 2022-04-23)
DX: A41.9 Sepsis, unspecified organism (principal); E43 Unspecified severe protein-calorie malnutrition; L89.524 Pressure ulcer of left ankle, stage 4; L89.513 Pressure ulcer of right ankle, stage 3; L89.894 Pressure ulcer of other site, stage 4; L89.224 Pressure ulcer of left hip, stage 4; L89.214 Pressure ulcer of right hip, stage 4; L89.154 Pressure ulcer of sacral region, stage 4; N17.0 Acute kidney failure with tubular necrosis; R53.2 Functional quadriplegia; N39.0 Urinary tract infection, site not specified; D62 Acute posthemorrhagic anemia; G93.40 Encephalopathy, unspecified; I50.32 Chronic diastolic (congestive) heart failure; K92.2 Gastrointestinal hemorrhage, unspecified; E87.0 Hyperosmolality and hypernatremia; K56.7 Ileus, unspecified; I13.0 Hypertensive heart and chronic kidney disease with heart failure and stage 1 through stage 4 chronic kidney disease, or unspecified chronic kidney disease; M86.8X8 Other osteomyelitis, other site; B96.4 Proteus (mirabilis) (morganii) as the cause of diseases classified elsewhere; E86.1 Hypovolemia; I25.10 Atherosclerotic heart disease of native coronary artery without angina pectoris; I25.2 Old myocardial infarction; M24.562 Contracture, left knee; M24.561 Contracture, right knee; Z86.16 Personal history of COVID-19; Z93.1 Gastrostomy status; F41.9 Anxiety disorder, unspecified; I95.9 Hypotension, unspecified; K21.9 Gastro-esophageal reflux disease without esophagitis; E87.5 Hyperkalemia; G89.29 Other chronic pain; N18.9 Chronic kidney disease, unspecified; K80.20 Calculus of gallbladder without cholecystitis without obstruction; K29.70 Gastritis, unspecified, without bleeding; Z79.01 Long term (current) use of anticoagulants; Z86.73 Personal history of transient ischemic attack (TIA), and cerebral infarction without residual deficits; Z87.442 Personal history of urinary calculi; Z88.2 Allergy status to sulfonamides; R13.10 Dysphagia, unspecified; H91.3 Deaf nonspeaking, not elsewhere classified; Z79.899 Other long term (current) drug therapy; Z87.440 Personal history of urinary (tract) infections; Z68.20 Body mass index [BMI] 20.0-20.9, adult
CPT/HCPCS: 36415; 36600; 70450; 71045; 76705; 83605; 83735; 83970; 84100; 84155; 84165; 84484; 85025; 85610; 85651; 86850; 86900; 86901; 86920; 87040; 88314; 93005; A4663; A6209; A6213; C9113; G0378; J2185; J2270; J2916; J3370; J3475; J3490; J7040; J7050; P9016; P9047

== ENCOUNTER 2022-05-07 12:21 | Inpatient (IN) | payer MEDICARE, OTHER ==
[~2022-05-07] VITALS: Ht 165.1 cm; Wt 63.5 kg
[~2022-05-07 12:21] MED LIST: ACET-2154 GT; AMIN236L GT; APIX5TAB4 GT; ASCO500T10 GT; BISA10SU61 RC; CHOL100045 GT; CHOL100062 GT; COLL30OI TP; CRAN3875 GT; DOCU100C36 GT; DOCU50LI GT; FAMO-132 GT; FERR300L GT; FERROUS SULFATE GT; GABA300C GT; GABA600T12 GT; Glucerna 1.2 GT; LACT10SO3 GT; LACT10SO7 GT; LINA72CA GT; MAGN400O6 GT; MELA3TAB41 GT; MENT113O TP; MERO1PIG IV; METO50TA16 GT; MIDO5TAB4 PO; MULT-24 GT; MULTIVITAMINS GT; NA P133E RC; NORCO GT; ONDA4VIA23 IV; PANT40SU2 GT; RXVAN XX; SENN-261 GT; SILVER NITRATE APPLICATOR TP; SODI480S2 TOP; SUCR1TAB31 GT; VANC750F IV; ZINC1CAP2 GT
--- NOTE | 2022-05-07 12:48 | NUR ---
PT IS IN ROOM #1B. DR DANIEL EVALUATED THE PT.
[2022-05-07] MEDS ORDERED: HYDR-3972 GT ×2 (13:00)
[2022-05-07 13:09] LABS: HEMATOCRIT 27.1 % (36.7-47.1); MEAN CORPUSCULAR HEMOGLOBIN 23.8 uug (23.8-33.4); MEAN CORPUSCULAR VOLUME 78.7 fL (73.0-96.2); PLATELET COUNT (AUTO) 449 K/uL (152-348)
[2022-05-07 13:26] LABS: BILIRUBIN,DIRECT 0.1 mg/dL (0.0-0.2); BILIRUBIN,TOTAL 0.3 mg/dL (0.2-1.0); CREATININE 0.8 mg/dL (0.6-1.3); TOTAL PROTEIN, SERUM 8.7 g/dL (6.4-8.2)
[2022-05-07] MEDS ORDERED: IV NORMAL SALINE 1000 ML BAG IV ONE ×2 (14:00)
[2022-05-07] MEDS ORDERED: ACETAMINOPHEN 325 MG TABLET-SA PATIENTS-PAIN ONLY GT PRN ×2 (14:45)
[2022-05-07] MEDS ORDERED: MIDODRINE HCL 5 MG TABLET PO PRN (14:45)
[2022-05-07] MEDS ORDERED: MAGNESIUM HYDROXIDE 30 ML LIQUID UDC GT PRN (14:45)
[2022-05-07] MEDS ORDERED: FLEET ENEMA 133 ML BOTTLE RC PRN (14:45)
[2022-05-07] MEDS ORDERED: BISACODYL 10 MG SUPP.RECT RC PRN (14:45)
[2022-05-07] MEDS ORDERED: MEROPENEM 1GM/NS 100ML IVPB **ER PYXIS ONLY IV ONE ×2 (15:11→22:05)
[2022-05-07] MEDS ORDERED: PANTOPRAZOLE SODIUM 40 MG TABLET.DR PO ONE (15:14)
[2022-05-07] MEDS: MEROPENEM 1 G in IV NORMAL SALINE 100 ML IV SCH ×2 (15:24→23:05)
[2022-05-07] MEDS: ASCORBIC ACID 500 MG TABLET GT SCH ×2 (15:24→17:05)
[2022-05-07] MEDS: METOPROLOL TARTRATE 50 MG TABLET GT SCH ×2 (15:24→21:00)
[2022-05-07] MEDS ORDERED: hydrALAZINE HCL 20 MG/1 ML VIAL IV PRN ×2 (16:00)
[2022-05-07] MEDS ORDERED: ENALAPRILAT DIHYDRATE 1.25 MG/1 ML VIAL IV PRN (16:00)
[2022-05-07] MEDS: SUCRALFATE 1 G/10 ML LIQUID UDC GT SCH ×2 (16:23→23:05)
[2022-05-07] MEDS ORDERED: SUCRALFATE 1 G TABLET GT SCH (16:30)
[2022-05-07] MEDS: SOD FERRIC GLUC COMPLX/SUCROSE 125 MG in IV NORMAL SALINE 100 ML IV SCH (16:44)
[2022-05-07] MEDS: GABAPENTIN 300 MG CAPSULE GT SCH (16:44)
[2022-05-07] MEDS: DOCUSATE SODIUM 100 MG/10 ML LIQUID UDC GT SCH (16:44)
[2022-05-07] MEDS ORDERED: ASCORBIC ACID 500 MG TABLET ONE (16:48)
[2022-05-07] MEDS ORDERED: HYDROCODONE/APAP 5-325MG TABLET ONE (17:11)
[2022-05-07] MEDS: PANTOPRAZOLE ORAL SUSPENSION 40 MG SUSPDR.PKT GT SCH (17:36)
--- NOTE | 2022-05-07 19:20 | NUR ---
Received report from KEELY Carrziales.
--- NOTE | 2022-05-07 21:00 | NUR ---
Patient sleeping in bed. NAD noted.
[2022-05-07] MEDS ORDERED: SUCRALFATE 1 G/10 ML LIQUID UDC ONE (22:04)
[2022-05-07] MEDS ORDERED: MELATONIN 3 MG TABLET ONE (22:05)
--- NOTE | 2022-05-07 23:00 | NUR ---
Pt sleeping in bed, easily awakened when touched.
[2022-05-07] MEDS: SENNOSIDES 1 TABLET GT SCH (23:05)
[2022-05-07] MEDS: MELATONIN 3 MG TABLET GT SCH (23:05)
--- NOTE | 2022-05-08 01:00 | NUR ---
Patient sleeping. NAD noted. Will continue with doctors orders.
--- NOTE | 2022-05-08 03:00 | NUR ---
PT awake in bed. NAD noted.
[2022-05-08] MEDS: PANTOPRAZOLE ORAL SUSPENSION 40 MG SUSPDR.PKT GT SCH ×2 (05:59→17:04)
--- NOTE | 2022-05-08 05:59 | NUR ---
0600 order for Protonix Oral Suspension 40 MG was not administered per pharmacy's request.
[2022-05-08] MEDS ORDERED: MEROPENEM 1GM/NS 100ML IVPB **ER PYXIS ONLY IV ONE (06:37)
[2022-05-08] MEDS: MEROPENEM 1 G in IV NORMAL SALINE 100 ML IV SCH ×3 (06:50→22:55)
--- NOTE | 2022-05-08 07:11 | NUR ---
Report given to KEELY Anton.
[2022-05-08] MEDS: MULTIVITAMINS,THERAPEUTIC TABLET GT SCH (08:18)
[2022-05-08] MEDS: ZINC SULFATE 220 MG CAPSULE GT SCH (08:18)
[2022-05-08] MEDS: SUCRALFATE 1 G/10 ML LIQUID UDC GT SCH ×4 (08:20→20:29)
[2022-05-08] MEDS ORDERED: DOCUSATE SODIUM 100 MG/10 ML LIQUID UDC ONE (08:21)
[2022-05-08] MEDS ORDERED: SUCRALFATE 1 G/10 ML LIQUID UDC ONE (08:21)
[2022-05-08] MEDS ORDERED: HYDROCODONE/APAP 5-325MG TABLET ONE (08:22)
[2022-05-08] MEDS ORDERED: GABAPENTIN 300 MG CAPSULE ONE (08:22)
[2022-05-08 08:29] LABS: HEMATOCRIT 26.6 % (36.7-47.1); MEAN CORPUSCULAR HEMOGLOBIN 24.4 uug (23.8-33.4); MEAN CORPUSCULAR VOLUME 79.2 fL (73.0-96.2); PLATELET COUNT (AUTO) 395 K/uL (152-348)
[2022-05-08 08:31] LABS: POTASSIUM 5.2 mmol/L (3.5-5.1)
[2022-05-08 08:32] LABS: BILIRUBIN,TOTAL 0.4 mg/dL (0.2-1.0); CREATININE 0.8 mg/dL (0.6-1.3); MAGNESIUM 2.1 mg/dL (1.8-2.4); PHOSPHOROUS 3.1 mg/dL (2.5-4.9); TOTAL PROTEIN, SERUM 8.7 g/dL (6.4-8.2)
[2022-05-08] MEDS: DOCUSATE SODIUM 100 MG/10 ML LIQUID UDC GT SCH ×2 (08:39→16:35)
[2022-05-08] MEDS: GABAPENTIN 300 MG CAPSULE GT SCH ×4 (08:39→16:35)
[2022-05-08] MEDS: ASCORBIC ACID 500 MG TABLET GT SCH ×4 (08:39→16:35)
[2022-05-08] MEDS: METOPROLOL TARTRATE 50 MG TABLET GT SCH ×2 (08:40→20:29)
--- NOTE | 2022-05-08 08:47 | NUR ---
Spoke to Dr Ruby, regarding pt's low BP, orders received and noted.
[2022-05-08] MEDS ORDERED: HYDROCODONE/APAP 5-325MG TABLET GT SCH (09:00)
[2022-05-08] MEDS ORDERED: CHOLECALCIFEROL 1,000 UNIT TABLET ONE (09:02)
[2022-05-08] MEDS: CHOLECALCIFEROL 1,000 UNIT TABLET GT SCH (09:05)
[2022-05-08 10:52] VITALS: BP 120/72
[2022-05-08 12:00] VITALS: BP 93/62
[2022-05-08] MEDS: HYDROCODONE/APAP 5-325MG TABLET GT PRN ×2 (12:55→23:48)
--- NOTE | 2022-05-08 12:55 | NUR ---
At this time I was informed by spanish interpreter/translator that communication is taking place by one way only. As stated pt. in unable to sign letters, correctly. and is only able to answer to yes or no questions.
--- NOTE | 2022-05-08 12:55 | NUR ---
At this time with the help of an freelance interpreter/translator at bedside pt. with c/of pain right side of the face and requested to be medicated once at bedside pt. refused medication. Pharmacist notified and waiting done with her help. due to system errors. Addendum: 05/08/22 at 1312 by ISAIAH TSE RN The above note is intended for another pt.
[2022-05-08] MEDS: SOD FERRIC GLUC COMPLX/SUCROSE 125 MG in IV NORMAL SALINE 100 ML IV SCH (13:57)
--- NOTE | 2022-05-08 14:32 | NUR ---
Christine a new systems accountant at bed-side. She also stating is difficult to understand pt. and patient refusing to get the dressing removed for picture taken .N.P. surgery here earlier and she was informed. tomorrow pt. will have debridement to sacrum.
[2022-05-08 16:00] VITALS: BP 113/67
[2022-05-08] MEDS: IV NS 1000 ML 1,000 ML IV PRN ×2 (17:59→23:48)
[2022-05-08 20:00] VITALS: BP 107/69
[2022-05-08] MEDS: FAMOTIDINE 20 MG TABLET GT SCH (20:28)
[2022-05-08] MEDS: SENNOSIDES 1 TABLET GT SCH (20:28)
[2022-05-08] MEDS: MELATONIN 3 MG TABLET GT SCH (20:29)
[2022-05-08] MEDS ORDERED: LIDOCAINE 1%-EPI 1:100,000 20 ML VIAL IJ ONE (22:00)
[2022-05-08] MEDS ORDERED: LIDOCAINE 4% TOPICAL 50 ML BOTTLE TP ONE (22:00)
[2022-05-09] VITALS: BP 102/57
[2022-05-09 04:00] VITALS: BP 94/61
[2022-05-09 05:16] LABS: HEMATOCRIT 26.4 % (36.7-47.1); MEAN CORPUSCULAR HEMOGLOBIN 24.3 uug (23.8-33.4); MEAN CORPUSCULAR VOLUME 80.1 fL (73.0-96.2); PLATELET COUNT (AUTO) 411 K/uL (152-348)
[2022-05-09 05:32] LABS: CREATININE 0.8 mg/dL (0.6-1.3); MAGNESIUM 1.8 mg/dL (1.8-2.4); PHOSPHOROUS 3.2 mg/dL (2.5-4.9); POTASSIUM 4.4 mmol/L (3.5-5.1)
[2022-05-09] MEDS: PANTOPRAZOLE ORAL SUSPENSION 40 MG SUSPDR.PKT GT SCH ×2 (06:00→18:40)
[2022-05-09] MEDS: MEROPENEM 1 G in IV NORMAL SALINE 100 ML IV SCH ×3 (06:16→22:27)
[2022-05-09] MEDS: SUCRALFATE 1 G/10 ML LIQUID UDC GT SCH ×4 (07:30→21:20)
--- NOTE | 2022-05-09 07:30 | NUR ---
TX TO RM 206 BY BED, REPORT LEFT FOR DAY SHIFT NURSE
[2022-05-09] MEDS: ZINC SULFATE 220 MG CAPSULE GT SCH ×2 (09:00→10:10)
[2022-05-09] MEDS: CHOLECALCIFEROL 1,000 UNIT TABLET GT SCH (09:57)
[2022-05-09] MEDS: METOPROLOL TARTRATE 50 MG TABLET GT SCH ×2 (10:02→21:20)
[2022-05-09] MEDS: DOCUSATE SODIUM 100 MG/10 ML LIQUID UDC GT SCH ×2 (10:09→18:40)
[2022-05-09] MEDS: GABAPENTIN 300 MG CAPSULE GT SCH ×3 (10:09→18:40)
[2022-05-09] MEDS: ASCORBIC ACID 500 MG TABLET GT SCH ×3 (10:09→18:40)
[2022-05-09] MEDS: MULTIVITAMINS,THERAPEUTIC TABLET GT SCH (10:10)
--- NOTE | 2022-05-09 11:14 | NUR ---
WOUND CARE CONSULT: PT PRESENTS WITH MULTIPLE PRESSURE ULCERS, PRESENT ON ADMISSION. PT PREVIOUSLY REFUSED PHOTOS. LOWER EXTREMITY PHOTOS TAKEN WITH NURSING STAFF. PT BECOMES COMBATIVE AT TIMES. DR WALTER NOTIFIED OF DPM CONSULT REQUEST. FIRST STEP LOW AIRLOSS MATTRESS IS ON ORDER. DISCUSSED SKIN PROTECTION WITH NURSING STAFF. MD IN AGREEMENT WITH PLAN OF CARE.
--- NOTE | 2022-05-09 12:55 | NUR ---
WOUND CARE ADDITIONAL: ASSISTED RN WITH WOUND PHOTOS. PT COMBATIVE AT TIMES. PT UNCOOPERATIVE WITH BEING TURNED FOR WOUND CARE. DIFFICULT ASSESSMENT DUE TO PT BEING UNCOOPERATIVE. LEFT BUTTOCK WOUND NOTED TO HAVE YELLOW ADHERENT NECROTIC TISSUE AND DEEP CAVITY WITH COPIOUS FOUL PURULENT DRAINAGE NOTED. SURGICAL TEAM OF DR MELTON AWARE. ALL SKIN PROTECTION MEASURES DISCUSSED WITH NURSING STAFF. MD IN AGREEMENT WITH PLAN OF CARE.
[2022-05-09] MEDS: HYDROCODONE/APAP 5-325MG TABLET GT PRN ×2 (13:07→18:44)
[2022-05-09] MEDS: SOD FERRIC GLUC COMPLX/SUCROSE 125 MG in IV NORMAL SALINE 100 ML IV SCH (15:28)
[2022-05-09] MEDS ORDERED: LIDOCAINE 4% TOPICAL 50 ML BOTTLE TP PRN (18:00)
[2022-05-09] MEDS ORDERED: LIDOCAINE 1%-EPI 1:100,000 20 ML VIAL IJ PRN (18:00)
[2022-05-09] MEDS ORDERED: JEVITY 1.2 1000 ML LIQUID GT PRN (18:30)
[2022-05-09] MEDS: SODIUM HYPOCHLORITE 0.125% (QUARTER STRENGTH) 473 ML BOTTLE TP SCH (18:41)
[2022-05-09 20:00] VITALS: BP 112/51
[2022-05-09] MEDS: FAMOTIDINE 20 MG TABLET GT SCH (21:21)
[2022-05-09] MEDS: MELATONIN 3 MG TABLET GT SCH (21:21)
[2022-05-09] MEDS: SENNOSIDES 1 TABLET GT SCH (21:21)
[2022-05-10 00:50] VITALS: BP 112/51
[2022-05-10] MEDS: HYDROCODONE/APAP 5-325MG TABLET GT PRN ×2 (01:35→17:20)
[2022-05-10 04:00] VITALS: BP 95/46
[2022-05-10] MEDS: PANTOPRAZOLE ORAL SUSPENSION 40 MG SUSPDR.PKT GT SCH ×2 (06:13→18:25)
[2022-05-10] MEDS: MEROPENEM 1 G in IV NORMAL SALINE 100 ML IV SCH ×3 (06:14→23:45)
[2022-05-10] MEDS: SUCRALFATE 1 G/10 ML LIQUID UDC GT SCH ×4 (06:36→21:08)
[2022-05-10 08:58] LABS: CREATININE 0.7 mg/dL (0.6-1.3); MAGNESIUM 1.6 mg/dL (1.8-2.4); PHOSPHOROUS 2.7 mg/dL (2.5-4.9); POTASSIUM 3.9 mmol/L (3.5-5.1)
[2022-05-10] MEDS: SODIUM HYPOCHLORITE 0.25% (HALF STRENGTH) 480 ML BOTTLE TOP SCH (09:00)
[2022-05-10 09:07] LABS: HEMATOCRIT 24.6 % (36.7-47.1); MEAN CORPUSCULAR HEMOGLOBIN 24.2 uug (23.8-33.4); MEAN CORPUSCULAR VOLUME 79.7 fL (73.0-96.2); PLATELET COUNT (AUTO) 334 K/uL (152-348)
[2022-05-10] MEDS: DOCUSATE SODIUM 100 MG/10 ML LIQUID UDC GT SCH ×2 (09:29→17:22)
[2022-05-10] MEDS: ASCORBIC ACID 500 MG TABLET GT SCH ×3 (09:29→17:20)
[2022-05-10] MEDS: MULTIVITAMINS,THERAPEUTIC TABLET GT SCH (09:29)
[2022-05-10] MEDS: ZINC SULFATE 220 MG CAPSULE GT SCH (09:29)
[2022-05-10] MEDS: CHOLECALCIFEROL 1,000 UNIT TABLET GT SCH (09:30)
[2022-05-10] MEDS: GABAPENTIN 300 MG CAPSULE GT SCH ×3 (09:30→17:21)
[2022-05-10] MEDS: METOPROLOL TARTRATE 50 MG TABLET GT SCH ×2 (09:40→21:00)
[2022-05-10 09:43] VITALS: BP 129/75
--- NOTE | 2022-05-10 12:12 | NUR ---
Morning medications offered. Patient stated that she will take her medications later in the day. Medications offered on three attempts with education. Patient delayed on all attempts.
[2022-05-10] MEDS: SOD FERRIC GLUC COMPLX/SUCROSE 125 MG in IV NORMAL SALINE 100 ML IV SCH (14:24)
[2022-05-10] MEDS: SODIUM HYPOCHLORITE 0.125% (QUARTER STRENGTH) 473 ML BOTTLE TP SCH (14:27)
[2022-05-10] MEDS: MAGNESIUM SULFATE/D5W 100 ML IV SCH ×4 (17:21→19:06)
[2022-05-10] MEDS ORDERED: MAGNESIUM SULFATE/D5W 100 ML IV SCH (21:00)
[2022-05-10] MEDS: MELATONIN 3 MG TABLET GT SCH (21:33)
[2022-05-10] MEDS: SENNOSIDES 1 TABLET GT SCH (21:33)
[2022-05-10] MEDS: FAMOTIDINE 20 MG TABLET GT SCH (21:34)
[2022-05-10 22:00] VITALS: BP 90/51
[2022-05-11] VITALS (9 sets, daily range): BP systolic 91–148; BP diastolic 45–88
--- NOTE | 2022-05-11 01:18 | NUR ---
Patient alert and non verbal . Patient extremities contracted . wound care completed. NS infusing at 75cc per hour into left upper arm midline. Jevity 1.2 infusing at 85cc per hour via peg. Head of bed elevated 30 degrees. Low air loss mattress placed on bed. Side rails up x3. Will continue to monitor.
[2022-05-11] MEDS: HYDROCODONE/APAP 5-325MG TABLET GT PRN ×4 (02:07→18:53)
[2022-05-11] MEDS: PANTOPRAZOLE ORAL SUSPENSION 40 MG SUSPDR.PKT GT SCH ×2 (05:40→17:06)
[2022-05-11] MEDS: MEROPENEM 1 G in IV NORMAL SALINE 100 ML IV SCH ×3 (05:40→23:49)
[2022-05-11] MEDS: SUCRALFATE 1 G/10 ML LIQUID UDC GT SCH ×5 (06:37→21:25)
[2022-05-11 07:42] LABS: CREATININE 0.7 mg/dL (0.6-1.3); MAGNESIUM 2.1 mg/dL (1.8-2.4); PHOSPHOROUS 2.4 mg/dL (2.5-4.9); POTASSIUM 4.2 mmol/L (3.5-5.1)
[2022-05-11 08:18] LABS: HEMATOCRIT 26.6 % (36.7-47.1); MEAN CORPUSCULAR HEMOGLOBIN 25.6 uug (23.8-33.4); MEAN CORPUSCULAR VOLUME 81.2 fL (73.0-96.2); PLATELET COUNT (AUTO) 301 K/uL (152-348)
[2022-05-11] MEDS: CHOLECALCIFEROL 1,000 UNIT TABLET GT SCH (08:39)
[2022-05-11] MEDS: MULTIVITAMINS,THERAPEUTIC TABLET GT SCH (08:39)
[2022-05-11] MEDS: ASCORBIC ACID 500 MG TABLET GT SCH ×3 (08:39→17:06)
[2022-05-11] MEDS: GABAPENTIN 300 MG CAPSULE GT SCH ×3 (08:40→17:06)
[2022-05-11] MEDS: DOCUSATE SODIUM 100 MG/10 ML LIQUID UDC GT SCH ×2 (08:41→17:08)
[2022-05-11] MEDS: ZINC SULFATE 220 MG CAPSULE GT SCH (08:42)
[2022-05-11] MEDS: SODIUM HYPOCHLORITE 0.25% (HALF STRENGTH) 480 ML BOTTLE TOP SCH (08:42)
[2022-05-11] MEDS: METOPROLOL TARTRATE 50 MG TABLET GT SCH ×2 (08:49→21:00)
[2022-05-11] MEDS: SODIUM HYPOCHLORITE 0.125% (QUARTER STRENGTH) 473 ML BOTTLE TP SCH (09:00)
[2022-05-11] MEDS ORDERED: NEUTRA PHOS PACKET GT ONE (14:15)
[2022-05-11] MEDS ORDERED: MAGNESIUM OXIDE 400 MG TABLET GT ONE (14:15)
[2022-05-11] MEDS ORDERED: SODI480S2 TOP (21:08)
[2022-05-11] MEDS ORDERED: MERO1PIG IV (21:08)
[2022-05-11] MEDS ORDERED: SODI473S8 TP (21:08)
[2022-05-11] MEDS ORDERED: SUCR1ORA GT (21:08)
[2022-05-11] MEDS ORDERED: LACT-209 GT (21:08)
[2022-05-11] MEDS ORDERED: HYDR-3972 GT (21:08)
[2022-05-11] MEDS: SENNOSIDES 1 TABLET GT SCH (21:27)
[2022-05-11] MEDS: MELATONIN 3 MG TABLET GT SCH (21:27)
[2022-05-11] MEDS: FAMOTIDINE 20 MG TABLET GT SCH (21:27)
[2022-05-11] MEDS: ACETAMINOPHEN 325 MG TABLET GT PRN (21:37)
[2022-05-11] MEDS: IV NS 1000 ML 1,000 ML IV PRN (21:43)
[2022-05-12 03:14] VITALS: BP 111/57
[2022-05-12] MEDS: HYDROCODONE/APAP 5-325MG TABLET GT PRN ×2 (04:14→10:24)
[2022-05-12 05:00] VITALS: BP 117/76
[2022-05-12] MEDS: PANTOPRAZOLE ORAL SUSPENSION 40 MG SUSPDR.PKT GT SCH ×2 (06:00→17:34)
[2022-05-12] MEDS: MEROPENEM 1 G in IV NORMAL SALINE 100 ML IV SCH ×3 (07:29→23:16)
--- NOTE | 2022-05-12 07:30 | NUR ---
Patient is AAOX3 however he is nonverbal but he does follow command. Patient bed linen have been changed, dressing changed, all medications have been administered. No sign of respiratory distress observed. Lab has been drawn through patient line. Patient is now resting comfortably in his room. Will continue to monitor patient for safety.
[2022-05-12 07:50] LABS: HEMATOCRIT 28.7 % (36.7-47.1); MEAN CORPUSCULAR HEMOGLOBIN 25.8 uug (23.8-33.4); PLATELET COUNT (AUTO) 269 K/uL (152-348)
[2022-05-12 08:05] LABS: CREATININE 0.6 mg/dL (0.6-1.3); MAGNESIUM 1.7 mg/dL (1.8-2.4); PHOSPHOROUS 2.6 mg/dL (2.5-4.9); POTASSIUM 4.3 mmol/L (3.5-5.1)
[2022-05-12 08:39] VITALS: BP 126/64
[2022-05-12] MEDS: GABAPENTIN 300 MG CAPSULE GT SCH ×3 (09:25→17:34)
[2022-05-12] MEDS: CHOLECALCIFEROL 1,000 UNIT TABLET GT SCH (09:25)
[2022-05-12] MEDS: ZINC SULFATE 220 MG CAPSULE GT SCH (09:25)
[2022-05-12] MEDS: METOPROLOL TARTRATE 50 MG TABLET GT SCH ×2 (09:25→20:39)
[2022-05-12] MEDS: ASCORBIC ACID 500 MG TABLET GT SCH ×3 (09:25→17:34)
[2022-05-12] MEDS: MULTIVITAMINS,THERAPEUTIC TABLET GT SCH (09:26)
[2022-05-12] MEDS: DOCUSATE SODIUM 100 MG/10 ML LIQUID UDC GT SCH ×2 (09:26→17:34)
[2022-05-12] MEDS: SODIUM HYPOCHLORITE 0.25% (HALF STRENGTH) 480 ML BOTTLE TOP SCH (09:28)
[2022-05-12] MEDS: SUCRALFATE 1 G/10 ML LIQUID UDC GT SCH ×4 (09:28→20:39)
[2022-05-12] MEDS: SODIUM HYPOCHLORITE 0.125% (QUARTER STRENGTH) 473 ML BOTTLE TP SCH (09:29)
[2022-05-12] MEDS: ACETAMINOPHEN 325 MG TABLET GT PRN ×2 (10:21→20:38)
[2022-05-12] MEDS: MAGNESIUM SULFATE/D5W 100 ML IV SCH ×2 (10:21→13:53)
[2022-05-12] MEDS ORDERED: LIDOCAINE 2%-EPI 1:100,000 20 ML VIAL IJ ONE (14:00)
[2022-05-12] MEDS ORDERED: SILVER NITRATE APPLICATOR STICK EACH TP ONE (14:00)
[2022-05-12 16:00] VITALS: BP 127/68
[2022-05-12 20:00] VITALS: BP 124/60
[2022-05-12] MEDS: FAMOTIDINE 20 MG TABLET GT SCH (20:38)
[2022-05-12] MEDS: SENNOSIDES 1 TABLET GT SCH (20:39)
[2022-05-12] MEDS: MELATONIN 3 MG TABLET GT SCH (20:39)
[2022-05-12] MEDS: IV NS 1000 ML 1,000 ML IV PRN (20:41)
--- NOTE | 2022-05-12 22:32 | NUR ---
Patient alert and nonverbal. Head of bed elevated 30 degrees. Room air with oxygen saturation of 96%. Temperature 100.8 axillary, medicated with tylenol for temperature and pain. Patient has a nonproductive cough. NS infusing at 75cc per hour into left arm midline. Peg intact with jevity 1.2 infusing at 85cc per hour. S-p catheter intact with cloudy yellow urine noted. Page placed to Dr onion tier , waiting for return call. Will continue to monitor.
--- NOTE | 2022-05-12 23:18 | NUR ---
Tube feeding infusing Jevity 1.2 at 85cc into peg with 5cc residual noted.
[2022-05-12 23:50] VITALS: BP 90/47
--- NOTE | 2022-05-13 00:58 | NUR ---
Respiratory therapy up to suction patient. Patient resting quietly at present. Will continue to monitor
[2022-05-13] MEDS: HYDROCODONE/APAP 5-325MG TABLET GT PRN ×4 (01:52→23:02)
--- NOTE | 2022-05-13 03:37 | NUR ---
All dressings changed as ordered. Patient cleaned for small bm.
[2022-05-13 04:30] VITALS: BP 105/54
[2022-05-13] MEDS: ACETAMINOPHEN 325 MG TABLET GT PRN ×2 (06:20→18:12)
[2022-05-13] MEDS: SUCRALFATE 1 G/10 ML LIQUID UDC GT SCH ×4 (06:20→21:42)
[2022-05-13] MEDS: PANTOPRAZOLE ORAL SUSPENSION 40 MG SUSPDR.PKT GT SCH ×2 (06:20→18:12)
[2022-05-13] MEDS: MEROPENEM 1 G in IV NORMAL SALINE 100 ML IV SCH ×3 (06:21→23:02)
[2022-05-13 07:04] LABS: HEMATOCRIT 28.3 % (36.7-47.1); MEAN CORPUSCULAR HEMOGLOBIN 25.4 uug (23.8-33.4); MEAN CORPUSCULAR VOLUME 82.2 fL (73.0-96.2); PLATELET COUNT (AUTO) 301 K/uL (152-348)
[2022-05-13 07:32] LABS: CREATININE 0.6 mg/dL (0.6-1.3); MAGNESIUM 1.9 mg/dL (1.8-2.4); PHOSPHOROUS 2.2 mg/dL (2.5-4.9); POTASSIUM 4.7 mmol/L (3.5-5.1)
[2022-05-13 08:00] VITALS: BP 129/65
[2022-05-13] MEDS: ZINC SULFATE 220 MG CAPSULE GT SCH (09:23)
[2022-05-13] MEDS: ASCORBIC ACID 500 MG TABLET GT SCH ×3 (09:23→16:31)
[2022-05-13] MEDS: MULTIVITAMINS,THERAPEUTIC TABLET GT SCH (09:23)
[2022-05-13] MEDS: CHOLECALCIFEROL 1,000 UNIT TABLET GT SCH (09:24)
[2022-05-13] MEDS: METOPROLOL TARTRATE 50 MG TABLET GT SCH ×2 (09:24→21:00)
[2022-05-13] MEDS: GABAPENTIN 300 MG CAPSULE GT SCH ×3 (09:24→16:31)
[2022-05-13] MEDS: DOCUSATE SODIUM 100 MG/10 ML LIQUID UDC GT SCH ×2 (09:24→16:31)
[2022-05-13] MEDS: SODIUM HYPOCHLORITE 0.25% (HALF STRENGTH) 480 ML BOTTLE TOP SCH (09:28)
[2022-05-13] MEDS: SODIUM HYPOCHLORITE 0.125% (QUARTER STRENGTH) 473 ML BOTTLE TP SCH (09:29)
[2022-05-13] MEDS ORDERED: NEUTRA PHOS PACKET PO ONE (16:00)
[2022-05-13 16:44] VITALS: BP 153/80
[2022-05-13] MEDS: GUAIFENESIN/DEXTROMETHORPHAN 5 ML UDC PO PRN ×2 (18:15→23:02)
[2022-05-13 20:00] VITALS: BP 98/54
[2022-05-13] MEDS: SENNOSIDES 1 TABLET GT SCH (21:42)
[2022-05-13] MEDS: FAMOTIDINE 20 MG TABLET GT SCH (21:42)
[2022-05-13] MEDS: MELATONIN 3 MG TABLET GT SCH (21:43)
[2022-05-14 00:32] VITALS: BP 90/50
[2022-05-14] MEDS: ACETAMINOPHEN 325 MG TABLET GT PRN ×2 (03:40→17:09)
[2022-05-14 05:00] VITALS: BP 128/56
--- NOTE | 2022-05-14 05:23 | NUR ---
Patient alert and non verbal . Head of bed up 30 degrees. NS infusing at 75cc per hour into left arm midline. Jevity 1.2 infusing at 85 cc per hour into peg tube with 5cc residual noted. Patient on room air. O2 saturation 91 to 92%. Temperature max 100.3 axillary this shift. All dressings changed as ordered. Patient cleaned for moderate soft brown BM. Suprapubic catheter draining jaja urine and leaking at insertion site. Patient has a non productive cough and refuses suctioning. Will continue to monitor. Dr notified of temperature and and cough,waiting for reply. Will continue to monitor.
[2022-05-14] MEDS: SUCRALFATE 1 G/10 ML LIQUID UDC GT SCH ×4 (06:14→20:53)
[2022-05-14] MEDS: GUAIFENESIN/DEXTROMETHORPHAN 5 ML UDC PO PRN ×2 (06:14→12:21)
[2022-05-14] MEDS: PANTOPRAZOLE ORAL SUSPENSION 40 MG SUSPDR.PKT GT SCH ×2 (06:14→17:09)
[2022-05-14] MEDS: MEROPENEM 1 G in IV NORMAL SALINE 100 ML IV SCH (06:15)
[2022-05-14 07:25] LABS: CREATININE 0.7 mg/dL (0.6-1.3); MAGNESIUM 1.7 mg/dL (1.8-2.4); PHOSPHOROUS 2.5 mg/dL (2.5-4.9); POTASSIUM 5.1 mmol/L (3.5-5.1)
[2022-05-14 07:28] LABS: HEMATOCRIT 27.6 % (36.7-47.1); MEAN CORPUSCULAR HEMOGLOBIN 25.6 uug (23.8-33.4); PLATELET COUNT (AUTO) 286 K/uL (152-348)
[2022-05-14 08:00] VITALS: BP 140/74
[2022-05-14] MEDS: MULTIVITAMINS,THERAPEUTIC TABLET GT SCH (08:36)
[2022-05-14] MEDS: ASCORBIC ACID 500 MG TABLET GT SCH ×3 (08:37→17:09)
[2022-05-14] MEDS: CHOLECALCIFEROL 1,000 UNIT TABLET GT SCH (08:37)
[2022-05-14] MEDS: DOCUSATE SODIUM 100 MG/10 ML LIQUID UDC GT SCH ×3 (08:37→20:53)
[2022-05-14] MEDS: ZINC SULFATE 220 MG CAPSULE GT SCH (08:37)
[2022-05-14] MEDS: METOPROLOL TARTRATE 50 MG TABLET GT SCH ×2 (08:38→21:55)
[2022-05-14] MEDS: GABAPENTIN 300 MG CAPSULE GT SCH ×3 (08:38→17:08)
[2022-05-14] MEDS: SODIUM HYPOCHLORITE 0.25% (HALF STRENGTH) 480 ML BOTTLE TOP SCH (08:39)
[2022-05-14] MEDS: SODIUM HYPOCHLORITE 0.125% (QUARTER STRENGTH) 473 ML BOTTLE TP SCH (08:39)
[2022-05-14] MEDS: HYDROCODONE/APAP 5-325MG TABLET GT PRN ×2 (09:41→17:10)
[2022-05-14] MEDS ORDERED: MAGNESIUM OXIDE 400 MG TABLET GT ONE (10:30)
[2022-05-14 16:48] VITALS: BP 124/68
[2022-05-14 20:00] VITALS: BP 123/66
[2022-05-14] MEDS ORDERED: GENTAMICIN SULFATE INJ 440 MG in IV DEXTROSE 5% 250 ML IV ONE (20:00)
[2022-05-14] MEDS: FAMOTIDINE 20 MG TABLET GT SCH (20:52)
[2022-05-14] MEDS: SENNOSIDES 1 TABLET GT SCH (20:53)
[2022-05-14] MEDS: MELATONIN 3 MG TABLET GT SCH (20:53)
[2022-05-15] MEDS: GUAIFENESIN/DEXTROMETHORPHAN 5 ML UDC PO PRN ×2 (03:14→21:54)
[2022-05-15] MEDS: HYDROCODONE/APAP 5-325MG TABLET GT PRN (03:14)
[2022-05-15 04:00] VITALS: BP 96/55
[2022-05-15 05:27] VITALS: BP 96/55
[2022-05-15] MEDS: PANTOPRAZOLE ORAL SUSPENSION 40 MG SUSPDR.PKT GT SCH ×2 (05:40→19:00)
[2022-05-15] MEDS: ACETAMINOPHEN 325 MG TABLET GT PRN ×2 (05:40→21:58)
[2022-05-15 08:41] LABS: HEMATOCRIT 28.4 % (36.7-47.1); MEAN CORPUSCULAR HEMOGLOBIN 25.6 uug (23.8-33.4); MEAN CORPUSCULAR VOLUME 83.6 fL (73.0-96.2); PLATELET COUNT (AUTO) 278 K/uL (152-348)
[2022-05-15 09:13] LABS: CREATININE 0.8 mg/dL (0.6-1.3); GENTAMICIN,RANDOM 7.4 ug/mL (4.0-8.0); MAGNESIUM 1.7 mg/dL (1.8-2.4); PHOSPHOROUS 2.5 mg/dL (2.5-4.9); POTASSIUM 5.4 mmol/L (3.5-5.1)
[2022-05-15] MEDS: GABAPENTIN 300 MG CAPSULE GT SCH ×3 (10:04→17:28)
[2022-05-15] MEDS: MULTIVITAMINS,THERAPEUTIC TABLET GT SCH ×2 (10:04→10:43)
[2022-05-15] MEDS: ASCORBIC ACID 500 MG TABLET GT SCH ×3 (10:04→17:28)
[2022-05-15] MEDS: CHOLECALCIFEROL 1,000 UNIT TABLET GT SCH ×2 (10:04→10:42)
[2022-05-15] MEDS: METOPROLOL TARTRATE 50 MG TABLET GT SCH ×2 (10:08→21:59)
[2022-05-15] MEDS: DOCUSATE SODIUM 100 MG/10 ML LIQUID UDC GT SCH ×2 (10:09→17:28)
[2022-05-15] MEDS: SUCRALFATE 1 G/10 ML LIQUID UDC GT SCH ×4 (10:49→21:52)
[2022-05-15] MEDS: SODIUM HYPOCHLORITE 0.25% (HALF STRENGTH) 480 ML BOTTLE TOP SCH (10:53)
[2022-05-15] MEDS: SODIUM HYPOCHLORITE 0.125% (QUARTER STRENGTH) 473 ML BOTTLE TP SCH (10:54)
[2022-05-15] MEDS: ZINC SULFATE 220 MG CAPSULE PO SCH (10:55)
--- NOTE | 2022-05-15 10:55 | NUR ---
zinc sulfate not given because unable to get 50mg from 220 mg capsule pharmacy notified will fix.
[2022-05-15 11:40] VITALS: BP 90/49
[2022-05-15 16:57] VITALS: BP 93/51
--- NOTE | 2022-05-15 19:09 | NUR ---
Patient is on G-tube feeding, Jeveity running at 85 hr. Patient is resting comfortable currently. He is breathing normal on room air. No s/s of pain nor distress noted. All medications crushed and administered via g-tube with no discomfort.
[2022-05-15 20:00] VITALS: BP 100/50
[2022-05-15] MEDS ORDERED: SUCRALFATE 1 G/10 ML LIQUID UDC ONE (20:59)
[2022-05-15] MEDS: MELATONIN 3 MG TABLET GT SCH (21:53)
[2022-05-15] MEDS: FAMOTIDINE 20 MG TABLET GT SCH (21:53)
[2022-05-15] MEDS: SENNOSIDES 1 TABLET GT SCH (21:53)
[2022-05-15 22:00] VITALS: BP 123/62
[2022-05-16] MEDS: HYDROCODONE/APAP 5-325MG TABLET GT PRN ×2 (01:38→10:27)
[2022-05-16] MEDS: ACETAMINOPHEN 325 MG TABLET GT PRN (04:54)
[2022-05-16] MEDS: IV NS 1000 ML 1,000 ML IV PRN ×3 (05:14→05:19)
--- NOTE | 2022-05-16 05:57 | NUR ---
Patient awake, alert,and nonverbal. Head of bed elevated 30 degrees. Jevity 1.2 infusing at 85 cc per hour via peg with no residual noted. Medicated prn for pain. Cleaned for 2 bowel movements. Dressings soiled and changed as ordered. Supra pubic catheter intact and leaking around insertion site. Midline not working and removed by charge nurse. No IV access. Tube feeding off at 6am
[2022-05-16 05:59] VITALS: BP 119/65
[2022-05-16] MEDS: PANTOPRAZOLE ORAL SUSPENSION 40 MG SUSPDR.PKT GT SCH (06:26)
[2022-05-16] MEDS: GUAIFENESIN/DEXTROMETHORPHAN 5 ML UDC PO PRN (06:34)
[2022-05-16] MEDS: SUCRALFATE 1 G/10 ML LIQUID UDC GT SCH ×2 (06:40→11:30)
--- NOTE | 2022-05-16 07:03 | NUR ---
Patient is refusing blood work
[2022-05-16 08:00] VITALS: BP 112/64
[2022-05-16] MEDS: SODIUM HYPOCHLORITE 0.25% (HALF STRENGTH) 480 ML BOTTLE TOP SCH (09:00)
[2022-05-16] MEDS: SODIUM HYPOCHLORITE 0.125% (QUARTER STRENGTH) 473 ML BOTTLE TP SCH (09:00)
[2022-05-16] MEDS: GABAPENTIN 300 MG CAPSULE GT SCH ×2 (10:13→12:36)
[2022-05-16] MEDS: ASCORBIC ACID 500 MG TABLET GT SCH ×2 (10:13→12:36)
[2022-05-16] MEDS: MULTIVITAMINS,THERAPEUTIC TABLET GT SCH (10:13)
[2022-05-16] MEDS: DOCUSATE SODIUM 100 MG/10 ML LIQUID UDC GT SCH (10:13)
[2022-05-16] MEDS: CHOLECALCIFEROL 1,000 UNIT TABLET GT SCH (10:13)
[2022-05-16] MEDS: ZINC SULFATE 220 MG CAPSULE PO SCH (10:13)
[2022-05-16] MEDS: METOPROLOL TARTRATE 50 MG TABLET GT SCH (10:16)
[2022-05-16 11:50] VITALS: BP 78/41
[2022-05-16] MEDS ORDERED: IV NORMAL SALINE 500 ML IV ONE (12:30)
[2022-05-16] MEDS ORDERED: MIDODRINE HCL 5 MG TABLET PO ONE (12:30)
--- NOTE | 2022-05-16 12:56 | NUR ---
no iv access.
[2022-05-16 14:13] LABS: HEMATOCRIT 29.1 % (36.7-47.1); MEAN CORPUSCULAR HEMOGLOBIN 25.6 uug (23.8-33.4); MEAN CORPUSCULAR VOLUME 83.1 fL (73.0-96.2); PLATELET COUNT (AUTO) 364 K/uL (152-348)
[2022-05-16 14:20] LABS: CREATININE 0.8 mg/dL (0.6-1.3); POTASSIUM 5.2 mmol/L (3.5-5.1)
--- NOTE | 2022-05-16 14:53 | NUR ---
MIDLINE TO GUILLE
--- NOTE | 2022-05-16 16:15 | NUR ---
REPORT CALLED BY ASSEMBLING FABRICATOR TO [employer]. REPORT GIVEN TO ALYSHA JIMENEZ. PATIENT DEPARTED @1615, CORINE STRETCHER. ALERT AND ABLE TO MAKE NEEDS KNOWN VIA GLOBAL ACCOUNT MANAGER. DEAF AND MUTE. PATIENT ON ROOM AIR. MIDLINE TO GUILLE, PLACED 05/06/22 @1400. 700 CC OF BRIGHT YELLOW URINE REMOVED FROM BASURTO. PEG PATENT, PLACEMENT VERIFIED, FLUSHES WELL.REPORT GIVEN TO TRANSPORT. CALL PLACE OUT TO FAMILY NO SUCCESS. HANG Ramirez RN
[2022-05-16 16:56] VITALS: BP 93/50
[2022-05-16] MEDS ORDERED: GENTAMICIN SULFATE INJ 440 MG in IV DEXTROSE 5% 250 ML IV ONE (21:00)
[2022-05-16] MEDS ORDERED: GENTAMICIN SULFATE INJ 500 MG in IV DEXTROSE 5% 250 ML IV ONE (21:00)
== END 2022-05-16 16:00 | DRG 853 ==
LOC: ER 12:35 → TRANSITION 15:00 → CCU 05-08 10:32 → MED 05-09 07:11 → MEDSURG3 05-15 05:46
PROVIDERS: ADMIT Internal Medicine; ATTEND Internal Medicine
PROC: 0KBP0ZZ Excision of Left Hip Muscle, Open Approach (ICD-10-PCS; 2022-05-10)
PROC: 0KB Muscles, Excision (ICD-10-PCS; principal; 2022-05-11)
PROC: 0KBS3ZZ Excision of Right Lower Leg Muscle, Percutaneous Approach (ICD-10-PCS; 2022-05-11)
PROC: 0KBW0ZZ Excision of Left Foot Muscle, Open Approach (ICD-10-PCS; 2022-05-11)
PROC: 0KBV0ZZ Excision of Right Foot Muscle, Open Approach (ICD-10-PCS; 2022-05-11)
PROC: 30233N1 Transfusion of Nonautologous Red Blood Cells into Peripheral Vein, Percutaneous Approach (ICD-10-PCS; 2022-05-11)
PROC: 0QB20ZZ Excision of Right Pelvic Bone, Open Approach (ICD-10-PCS; 2022-05-12)
PROC: 05H533Z Insertion of Infusion Device into Right Subclavian Vein, Percutaneous Approach (ICD-10-PCS; 2022-05-16)
PROC: B546ZZA Ultrasonography of Right Subclavian Vein, Guidance (ICD-10-PCS; 2022-05-16)
DX: A41.9 Sepsis, unspecified organism (principal); E43 Unspecified severe protein-calorie malnutrition; L89.224 Pressure ulcer of left hip, stage 4; L89.214 Pressure ulcer of right hip, stage 4; L89.524 Pressure ulcer of left ankle, stage 4; L89.513 Pressure ulcer of right ankle, stage 3; L89.894 Pressure ulcer of other site, stage 4; L89.154 Pressure ulcer of sacral region, stage 4; L89.324 Pressure ulcer of left buttock, stage 4; R53.2 Functional quadriplegia; D62 Acute posthemorrhagic anemia; N17.9 Acute kidney failure, unspecified; N39.0 Urinary tract infection, site not specified; M46.28 Osteomyelitis of vertebra, sacral and sacrococcygeal region; I50.32 Chronic diastolic (congestive) heart failure; I69.354 Hemiplegia and hemiparesis following cerebral infarction affecting left non-dominant side; R64 Cachexia; I25.10 Atherosclerotic heart disease of native coronary artery without angina pectoris; I25.2 Old myocardial infarction; I11.0 Hypertensive heart disease with heart failure; Z86.16 Personal history of COVID-19; Z87.440 Personal history of urinary (tract) infections; Z88.2 Allergy status to sulfonamides; Z93.1 Gastrostomy status; Z87.442 Personal history of urinary calculi; Z20.822 Contact with and (suspected) exposure to COVID-19; K29.70 Gastritis, unspecified, without bleeding; E87.5 Hyperkalemia; K21.9 Gastro-esophageal reflux disease without esophagitis; Z68.23 Body mass index [BMI] 23.0-23.9, adult; F41.9 Anxiety disorder, unspecified; G89.4 Chronic pain syndrome; K59.00 Constipation, unspecified; M24.561 Contracture, right knee; M24.562 Contracture, left knee; R13.10 Dysphagia, unspecified; Z79.01 Long term (current) use of anticoagulants; Z79.899 Other long term (current) drug therapy; R62.7 Adult failure to thrive; Z74.01 Bed confinement status
CPT/HCPCS: 36415; 71045; 83605; 83735; 84100; 85025; 85610; 85730; 86850; 86900; 86901; 86920; 87040; 93005; A4663; A6209; A6213; G0378; J1580; J2185; J2916; J3475; J3490; J7040; J7042; J7050; J7060; P9016